=== PATIENT | male | born 1965 | race Two or more races ===

== ENCOUNTER 2024-12-01 16:09 | Emergency (ER) | payer OTHER ==
[~2024-12-01] VITALS: Ht 175.3 cm; Wt 70.8 kg
[2024-12-01] MEDS ORDERED: COZAAR25 MG PO (17:03)
[2024-12-01] MEDS ORDERED: TETANUS & DIPHTHERIA TOX,ADULT 0.5 ML VIAL IM STA (18:02)
[2024-12-01] MEDS ORDERED: KETOROLAC TROMETHAMINE 60 MG VIAL IM STA (18:03)
[2024-12-01] MEDS ORDERED: CLINDAMYCIN PHOSPHATE 150 MG/ML (300mg) IM STA (18:03)
[2024-12-01] MEDS ORDERED: CLINDAMYCIN PHOSPHATE 150 MG/ML (300mg) ONE (18:08)
[2024-12-01] MEDS ORDERED: KETOROLAC TROMETHAMINE 60 MG VIAL IM ONE (18:08)
[2024-12-01] MEDS ORDERED: DIPHTH,PERTUSS(ACELL),TET VAC 0.5 ML SYRINGE IM ONE (18:09)
== END 2024-12-01 18:57 | disposition home or self-care (01) ==
LOC: ER 16:11
DX: S60.471A Other superficial bite of left index finger, initial encounter (principal); W54.0XXA Bitten by dog, initial encounter; Y93.89 Activity, other specified; Y92.89 Other specified places as the place of occurrence of the external cause